=== PATIENT | male | born 1960 | race Caucasian/White ===

== ENCOUNTER 2020-11-20 10:07 | Emergency (ER) | payer MEDICARE, OTHER ==
[~2020-11-20] VITALS: Ht 172.7 cm; Wt 101.6 kg
--- NOTE | 2020-11-20 10:12 | NUR ---
TO ER BED 1, C/O RIGHT YAZIDISM PAIN FOR 2 DAYS, ATTACHED TO MONITOR, AWAITING MD CARVAJAL Addendum: 11/20/20 at 1048 by SIGIFREDO ALSO WITH CHEST PAIN FOR 2 DAYS OR LONGER
--- NOTE | 2020-11-20 10:16 | NUR ---
Called [facility], the PT can go back to the facility after lunch per house sup.
--- NOTE | 2020-11-20 10:48 | NUR ---
LAB AT BEDSIDE
--- NOTE | 2020-11-20 10:56 | NUR ---
XRAY AT BEDSIDE
[2020-11-20 10:57] LABS: BASOPHILS # (AUTO) 0.1 K/uL (0.0-0.2); BASOPHILS % (AUTO) 0.9 % (0.0-2.0); EOSINOPHILS % (AUTO) 1.5 % (0.0-6.0); HEMATOCRIT 41 % (39-51); HEMOGLOBIN 13.8 g/dL (13.5-17.5); LYMPHOCYTES # (AUTO) 1.9 K/uL (0.8-4.8); LYMPHOCYTES % (AUTO) 30.5 % (20.0-44.0); MEAN CORPUSCULAR HGB CONC 34 g/dl (31.0-36.0); MEAN CORPUSCULAR VOLUME 96 fL (80-96); MONOCYTES # (AUTO) 0.6 K/uL (0.1-1.30); MONOCYTES % (AUTO) 9.1 % (2.0-12.0); NEUTROPHILS # (AUTO) 3.7 K/uL (1.8-8.9); PLATELET COUNT (AUTO) 246 K/uL (150-450); RED BLOOD CELL COUNT(AUTO) 4.21 MIL/uL (4.5-6.0); WHITE BLOOD COUNT (AUTO) 6.3 K/uL (4.3-11.0)
[2020-11-20 11:01] LABS: CALCIUM, SERUM 8.2 mg/dL (8.5-10.1); CARBON DIOXIDE 24 mmol/L (21-32); CHLORIDE 103 mmol/L (98-107); CREATININE 0.7 mg/dL (0.6-1.3); GLUCOSE 82 mg/dL (74-106); SODIUM SERUM 135 mmol/L (136-145); UREA NITROGEN, BLOOD 11 mg/dL (7-18)
[2020-11-20 11:04] LABS: POTASSIUM 6.2 mmol/L (3.5-5.1)
--- NOTE | 2020-11-20 11:26 | NUR ---
LAB AT BESIDE
[2020-11-20 11:41] LABS: CALCIUM, SERUM 8.3 mg/dL (8.5-10.1); CREATININE 0.9 mg/dL (0.6-1.3)
[2020-11-20 12:12] VITALS: BP 109/66
[2020-11-20] MEDS ORDERED: ACET-2605 PO (12:12)
--- NOTE | 2020-11-20 12:19 | NUR ---
IV removed. Catheter intact and site benign. Pressure and 4x4 applied to site. No bleeding noted.Patient discharged to home in stable condition. Written and verbal after care instructions given. Patient verbalizes understanding of instruction.
== END 2020-11-20 12:30 | disposition home or self-care (01) ==
LOC: ER 10:26
DX: R07.89 Other chest pain (principal); J45.909 Unspecified asthma, uncomplicated; F32.9 Major depressive disorder, single episode, unspecified; F41.9 Anxiety disorder, unspecified; Z88.5 Allergy status to narcotic agent; Z88.2 Allergy status to sulfonamides
CPT/HCPCS: 36415; 71045-TC; 80048-TC; 83880; 84484-TC; 85025-TC

== ENCOUNTER 2021-07-02 09:53 | Emergency (ER) | payer MEDICARE, OTHER ==
[~2021-07-02] VITALS: Ht 182.9 cm; Wt 103.4 kg
[~2021-07-02 09:53] MED LIST: ACET-2605 PO
--- NOTE | 2021-07-02 10:00 | NUR ---
BIBRA FOR WITNESSED SEIZURE EVENT WHILE AT THE FACILITY. THE PATIENT IS ALERT AND ORIENTED X2. DENIES PAIN. IN ROOM AIR AND DENIES SOB. RESPIRATION REGULAR AND UNLABORED. ATTACHED TO THE MONITOR. SIDE RAILS PADDED. SEIZURE PRECAUTIONS TAKEN. WILL CONTINUE TO MONITOR THE PATIENT.
[2021-07-02] MEDS ORDERED: OXYB-58 PO (10:14)
[2021-07-02] MEDS ORDERED: ZOLP5TAB8 PO (10:14)
[2021-07-02] MEDS ORDERED: DONE5TAB34 PO (10:14)
[2021-07-02] MEDS ORDERED: MEMA10TA PO (10:14)
[2021-07-02] MEDS ORDERED: FOLI0.4T6 PO (10:14)
[2021-07-02] MEDS ORDERED: TRAZ-257 PO (10:14)
[2021-07-02] MEDS ORDERED: KETO10TA2 PO (10:14)
[2021-07-02] MEDS ORDERED: DOCU250C14 PO (10:14)
[2021-07-02] MEDS ORDERED: LEVE500T9 PO (10:14)
[2021-07-02] MEDS ORDERED: VITA1TAB56 PO (10:14)
[2021-07-02] MEDS ORDERED: SUMA50TA PO (10:14)
[2021-07-02] MEDS ORDERED: LEVO25TA7 PO (10:14)
[2021-07-02] MEDS ORDERED: IBUP-1955 PO (10:14)
[2021-07-02] MEDS ORDERED: MIRT-90 PO (10:14)
[2021-07-02] MEDS ORDERED: ACET-2605 PO (10:14)
[2021-07-02] MEDS ORDERED: NITR0.4T48 SL (10:14)
[2021-07-02] MEDS ORDERED: ESCI10TA PO (10:14)
[2021-07-02] MEDS ORDERED: LAMO200T10 PO (10:14)
[2021-07-02] MEDS ORDERED: PROP10TA10 PO (10:14)
[2021-07-02] MEDS ORDERED: METH750T3 PO (10:14)
[2021-07-02] MEDS ORDERED: CYAN-51 PO (10:17)
[2021-07-02] MEDS ORDERED: LISI10TA29 PO (10:17)
[2021-07-02] MEDS ORDERED: ARIP5TAB10 PO (10:17)
[2021-07-02] MEDS ORDERED: PANT40TA2 PO (10:17)
[2021-07-02] MEDS ORDERED: OMEG1CAP40 PO (10:17)
[2021-07-02] MEDS ORDERED: CHOL100043 PO (10:17)
[2021-07-02] MEDS ORDERED: LACO200T2 PO (10:17)
--- NOTE | 2021-07-02 10:27 | NUR ---
PT UNALBLE TO PROVIDE URINE AT THIS TIME, URINAL PROVIDED AT BEDSIDE.
[2021-07-02 10:43] LABS: BASOPHILS # (AUTO) 0.1 K/uL (0.0-0.2); BASOPHILS % (AUTO) 0.8 % (0.0-2.0); EOSINOPHILS % (AUTO) 1.4 % (0.0-6.0); HEMATOCRIT 41 % (39-51); HEMOGLOBIN 13.8 g/dL (13.5-17.5); LYMPHOCYTES # (AUTO) 1.4 K/uL (0.8-4.8); LYMPHOCYTES % (AUTO) 17.8 % (20.0-44.0); MEAN CORPUSCULAR HGB CONC 34 g/dl (31.0-36.0); MEAN CORPUSCULAR VOLUME 96 fL (80-96); MONOCYTES # (AUTO) 0.4 K/uL (0.1-1.30); MONOCYTES % (AUTO) 5.5 % (2.0-12.0); NEUTROPHILS # (AUTO) 5.6 K/uL (1.8-8.9); NEUTROPHILS % (AUTO) 74.5 % (43.0-81.0); PLATELET COUNT (AUTO) 245 K/uL (150-450); RED BLOOD CELL COUNT(AUTO) 4.27 MIL/uL (4.5-6.0); WHITE BLOOD COUNT (AUTO) 7.6 K/uL (4.3-11.0)
[2021-07-02 11:02] LABS: CALCIUM, SERUM 8.5 mg/dL (8.5-10.1); CARBON DIOXIDE 31 mmol/L (21-32); CHLORIDE 102 mmol/L (98-107); GLUCOSE 123 mg/dL (74-106); POTASSIUM 3.8 mmol/L (3.5-5.1); SODIUM SERUM 138 mmol/L (136-145); UREA NITROGEN, BLOOD 10 mg/dL (7-18)
[2021-07-02 11:08] LABS: ALANINE AMINOTRANSFERASE 35 U/L (12-78); ALBUMIN 3.5 g/dL (3.4-5.0); ALCOHOL, BLOOD < 3 mg/dL (0-0); ALKALINE PHOSPHATASE 148 U/L (46-116); ASPARTATE AMINOTRANSFERASE 18 U/L (15-37); BILIRUBIN,DIRECT 0.1 mg/dL (0.0-0.2); BILIRUBIN,TOTAL 0.2 mg/dL (0.2-1.0); TOTAL PROTEIN, SERUM 7.7 g/dL (6.4-8.2)
--- NOTE | 2021-07-02 12:13 | NUR ---
urine specimen sent to lab
--- NOTE | 2021-07-02 12:40 | NUR ---
[facility] CALLED FOR TRANSPORT WITH ETA OF 60 MINS.
--- NOTE | 2021-07-02 14:05 | NUR ---
[facility] ARRIVED TO TRANSPORT PT, REPORT WAS GIVEN, PT WAS PROVIDED WITH DISCHARGE PAPERWORK AND VERBALIZED UNDERSTANDING. ACCESS TO PORTACATH REMOVED, PRESSURE APPLIED WITH 2X2 GUAZE. PT BEING DISCHARGED IN STABLE CONDITION.
[2021-07-02 14:07] VITALS: BP 162/88
== END 2021-07-02 14:08 | disposition home or self-care (01) ==
LOC: ER 10:01
DX: G40.909 Epilepsy, unspecified, not intractable, without status epilepticus (principal); J45.909 Unspecified asthma, uncomplicated; F32.A Depression, unspecified; F41.9 Anxiety disorder, unspecified; Z88.5 Allergy status to narcotic agent; Z88.2 Allergy status to sulfonamides; Z79.1 Long term (current) use of non-steroidal anti-inflammatories (NSAID); Z79.899 Other long term (current) drug therapy
CPT/HCPCS: 36415; 71045-TC; 80048-TC; 80076-TC; 85025-TC; 85730-TC; G0480

== ENCOUNTER 2021-10-03 10:07 | Emergency (ER) | payer MEDICARE, OTHER ==
[~2021-10-03] VITALS: Ht 172.7 cm; Wt 95.3 kg
[~2021-10-03 10:07] MED LIST changes: +ARIP5TAB10 PO; +CHOL100043 PO; +CYAN-51 PO; +DOCU250C14 PO; +DONE5TAB34 PO; +ESCI10TA PO; +FOLI0.4T6 PO; +IBUP-1955 PO; +KETO10TA2 PO; +LACO200T2 PO; +LAMO200T10 PO; +LEVE500T9 PO; +LEVO25TA7 PO; +LISI10TA29 PO; +MEMA10TA PO; +METH750T3 PO; +MIRT-90 PO; +NITR0.4T48 SL; +OMEG1CAP40 PO; +OXYB-58 PO; +PANT40TA2 PO; +PROP10TA10 PO; +SUMA50TA PO; +TRAZ-257 PO; +VITA1TAB56 PO; +ZOLP5TAB8 PO
--- NOTE | 2021-10-03 10:40 | NUR ---
RECEVED PT 61 YRS MALE CAME BY [facility] C/O CHEST PAIN WITH SOB RESPIRATION SPONT AND EASY
--- NOTE | 2021-10-03 10:50 | NUR ---
BLOOD DROW AND SNT TO LAB
[2021-10-03 11:07] LABS: BASOPHILS # (AUTO) 0.1 K/uL (0.0-0.2); BASOPHILS % (AUTO) 0.8 % (0.0-2.0); EOSINOPHILS % (AUTO) 2.7 % (0.0-6.0); HEMATOCRIT 42 % (39-51); HEMOGLOBIN 13.9 g/dL (13.5-17.5); LYMPHOCYTES # (AUTO) 1.9 K/uL (0.8-4.8); LYMPHOCYTES % (AUTO) 25.4 % (20.0-44.0); MEAN CORPUSCULAR HGB CONC 33 g/dl (31.0-36.0); MEAN CORPUSCULAR VOLUME 97 fL (80-96); MONOCYTES # (AUTO) 0.5 K/uL (0.1-1.30); MONOCYTES % (AUTO) 7.5 % (2.0-12.0); NEUTROPHILS # (AUTO) 4.6 K/uL (1.8-8.9); NEUTROPHILS % (AUTO) 63.6 % (43.0-81.0); PLATELET COUNT (AUTO) 241 K/uL (150-450); RED BLOOD CELL COUNT(AUTO) 4.31 MIL/uL (4.5-6.0); WHITE BLOOD COUNT (AUTO) 7.3 K/uL (4.3-11.0)
--- NOTE | 2021-10-03 11:10 | NUR ---
TO CT SCAN OF HEAD
[2021-10-03 11:34] LABS: ALANINE AMINOTRANSFERASE 28 U/L (12-78); ALBUMIN 3.5 g/dL (3.4-5.0); ALKALINE PHOSPHATASE 125 U/L (46-116); ASPARTATE AMINOTRANSFERASE 27 U/L (15-37); BILIRUBIN,TOTAL 0.4 mg/dL (0.2-1.0); CALCIUM, SERUM 8.4 mg/dL (8.5-10.1); CARBON DIOXIDE 30 mmol/L (21-32); CHLORIDE 102 mmol/L (98-107); CREATININE 0.9 mg/dL (0.6-1.3); GLUCOSE 88 mg/dL (74-106); POTASSIUM 5.2 mmol/L (3.5-5.1); SODIUM SERUM 135 mmol/L (136-145); TOTAL PROTEIN, SERUM 7.9 g/dL (6.4-8.2); UREA NITROGEN, BLOOD 13 mg/dL (7-18)
--- NOTE | 2021-10-03 11:40 | NUR ---
kisha for lab result
--- NOTE | 2021-10-03 12:17 | NUR ---
awake and alert AMBLATE TO br no diffeculy d/cinstraction given to pt fully and verblized understood d/c home with fallow up care
--- NOTE | 2021-10-03 13:02 | NUR ---
CALLED [facility] AND SET UP BLS TRANSPORT ETA 1400
--- NOTE | 2021-10-03 13:14 | NUR ---
WATING FOR [facility] TO transfer back to snf
--- NOTE | 2021-10-03 14:04 | NUR ---
LUNCH OBTENED EAT WILL NO N/V NO CHEST PAIN NO DIZZNESS WATING FOR AMBLANCE
--- NOTE | 2021-10-03 14:50 | NUR ---
[facility] HERE FOR TRANSFER PT TO [facility]
[2021-10-03 15:06] VITALS: BP 144/83
== END 2021-10-03 15:06 | disposition home or self-care (01) ==
LOC: ER 10:11
DX: R07.89 Other chest pain (principal); R42 Dizziness and giddiness; J45.909 Unspecified asthma, uncomplicated; F32.A Depression, unspecified; F41.9 Anxiety disorder, unspecified; Z86.69 Personal history of other diseases of the nervous system and sense organs; Z88.8 Allergy status to other drugs, medicaments and biological substances; Z79.899 Other long term (current) drug therapy
CPT/HCPCS: 36415; 70450-TC; 71045-TC; 80048-TC; 80076-TC; 84484-TC; 85025-TC; 85730-TC

== ENCOUNTER 2022-07-30 11:37 | Emergency (ER) | payer MEDICARE, OTHER ==
[~2022-07-30] VITALS: Ht 172.7 cm; Wt 102.5 kg
--- NOTE | 2022-07-30 11:58 | NUR ---
Patient AOx3-4, able to express his concernt. Patient aware of current situation but states he does know what was going on before coming to the hospital. Patient able to provide some history, falling asleep during assessment. Will continue to monitor throughout shift, all safety precautions taken.
--- NOTE | 2022-07-30 12:25 | NUR ---
Labs collected and sent to lab
[2022-07-30 13:04] LABS: BASOPHILS # (AUTO) 0.1 K/uL (0.0-0.2); BASOPHILS % (AUTO) 1.1 % (0.0-2.0); EOSINOPHILS % (AUTO) 2.4 % (0.0-6.0); HEMATOCRIT 43 % (39-51); HEMOGLOBIN 14.4 g/dL (13.5-17.5); LYMPHOCYTES # (AUTO) 1.9 K/uL (0.8-4.8); LYMPHOCYTES % (AUTO) 24.6 % (20.0-44.0); MEAN CORPUSCULAR HGB CONC 34 g/dl (31.0-36.0); MEAN CORPUSCULAR VOLUME 95 fL (80-96); MONOCYTES # (AUTO) 0.4 K/uL (0.1-1.30); MONOCYTES % (AUTO) 5.8 % (2.0-12.0); NEUTROPHILS # (AUTO) 5.2 K/uL (1.8-8.9); NEUTROPHILS % (AUTO) 66.1 % (43.0-81.0); PLATELET COUNT (AUTO) 274 K/uL (150-450); RED BLOOD CELL COUNT(AUTO) 4.51 MIL/uL (4.5-6.0); WHITE BLOOD COUNT (AUTO) 7.8 K/uL (4.3-11.0)
[2022-07-30 13:13] LABS: CALCIUM, SERUM 8.6 mg/dL (8.5-10.1); POTASSIUM 4.8 mmol/L (3.5-5.1)
[2022-07-30 13:17] LABS: ALBUMIN 3.7 g/dL (3.4-5.0); BILIRUBIN,TOTAL 0.5 mg/dL (0.2-1.0); TOTAL PROTEIN, SERUM 8.6 g/dL (6.4-8.2)
[2022-07-30] MEDS ORDERED: ACETAMINOPHEN ES 500 MG TABLET PO ONE (14:00)
[2022-07-30] MEDS ORDERED: ACETAMINOPHEN ES 500 MG TABLET ONE (14:03)
--- NOTE | 2022-07-30 14:21 | NUR ---
CALLED [facility] SPOKE TO JEANNIE REGARDING RETURN OF PT, WILL DISCUSS WITH BUFFER NICKEL AND CALL BACK
--- NOTE | 2022-07-30 14:36 | NUR ---
SPOKE WITH [facility] [employer] [facility] WHO INFORMED PT IS A VOLUNTARY ADMIT AND WILL BE ACCEPTED.
--- NOTE | 2022-07-30 15:03 | NUR ---
NOTIFIED SPEEDY Kelsey/ [employer] [employer]U[facility] FOR ASSISTANCE ON DISCHARGE PLANNING.
--- NOTE | 2022-07-30 15:03 | NUR ---
UNABLE TO REACH [facility]&C VIA PHONE ON FILE
--- NOTE | 2022-07-30 15:04 | NUR ---
SS NOTE: OLIVIER was notified of this 62 year old patient that came from [facility] IOP program after seizure like acitivity per ERM. Pt. is now medically cleared and wants to go straight to the facility he resides [facility] [[address] [place] [address]] instead of going back to [facility]. OLIVIER called tel: [phone] and spoke to Gabi from facility who said pt. can return to [facility] [[address] [place] [address]]. OLIVIER spoke to ED Staff and notified them to arrange tranport to :[facility] [[address] [place] [address]].
--- NOTE | 2022-07-30 15:42 | NUR ---
TRANSPORT ARRANGED WITH [facility], ETA 1074
--- NOTE | 2022-07-30 16:35 | NUR ---
Discussed plan of care with patient, verbalized agreement. Forms signed and records given to pt.
--- NOTE | 2022-07-30 16:43 | NUR ---
Transport at bedside, setting up patient for transport. All safety precautions taken.
[2022-07-30 16:44] VITALS: BP 128/88
== END 2022-07-30 16:44 | disposition home or self-care (01) ==
LOC: ER 12:04
DX: R56.9 Unspecified convulsions (principal); J45.909 Unspecified asthma, uncomplicated; F32.A Depression, unspecified; F41.9 Anxiety disorder, unspecified; F20.9 Schizophrenia, unspecified; Z79.899 Other long term (current) drug therapy; Z88.2 Allergy status to sulfonamides; Z88.5 Allergy status to narcotic agent
CPT/HCPCS: 36415; 80048-TC; 80076-TC; 85025-TC

== ENCOUNTER 2023-08-06 13:05 | Emergency (ER) | payer MEDICARE, OTHER ==
[~2023-08-06] VITALS: Ht 170.2 cm; Wt 100.7 kg
[2023-08-06 14:34] LABS: BASOPHILS # (AUTO) 0.1 K/uL (0.0-0.2); BASOPHILS % (AUTO) 0.9 % (0.0-2.0); EOSINOPHILS # (AUTO) 0.1 K/uL (0.0-0.7); EOSINOPHILS % (AUTO) 2.1 % (0.0-6.0); HEMATOCRIT 41 % (39-51); HEMOGLOBIN 13.9 g/dL (13.5-17.5); LYMPHOCYTES # (AUTO) 1.5 K/uL (0.8-4.8); LYMPHOCYTES % (AUTO) 21.3 % (20.0-44.0); MEAN CORPUSCULAR HEMOGLOBIN 32 PG (26.0-33.0); MEAN CORPUSCULAR HGB CONC 34 g/dl (31.0-36.0); MEAN CORPUSCULAR VOLUME 94 fL (80-96); MONOCYTES # (AUTO) 0.4 K/uL (0.1-1.30); MONOCYTES % (AUTO) 5.3 % (2.0-12.0); NEUTROPHILS % (AUTO) 70.4 % (43.0-81.0); PLATELET COUNT (AUTO) 276 K/uL (150-450); RED BLOOD CELL COUNT(AUTO) 4.36 MIL/uL (4.5-6.0); RED CELL DISTRIBUTION WIDTH 12.8 % (11.5-15.0)
[2023-08-06] MEDS: IV NS 0.9% 1,000 ML BAG IV ONE (14:34)
[2023-08-06 14:47] LABS: CALCIUM, SERUM 8.5 mg/dL (8.5-10.1); CREATININE 1.1 mg/dL (0.6-1.3); POTASSIUM 3.6 mmol/L (3.5-5.1)
[2023-08-06 14:53] LABS: ALBUMIN 3.4 g/dL (3.4-5.0); BILIRUBIN,DIRECT 0.1 mg/dL (0.0-0.2); BILIRUBIN,TOTAL 0.3 mg/dL (0.2-1.0); TOTAL PROTEIN, SERUM 7.6 g/dL (6.4-8.2)
[2023-08-06] MEDS ORDERED: LORAZEPAM INJ 2 MG/ML VIAL ONE (15:05)
[2023-08-06] MEDS: LORAZEPAM INJ 2 MG/ML VIAL IVP ONE (15:09)
[2023-08-06] MEDS: LEVETIRACETAM (500MG) 1,000 MG in IV NS 0.9% 90 ML IV SCH (15:37)
[2023-08-06 15:52] LABS: AMPHETAMINE, URINE NEGATIVE (NEGATIVE); BARBITURATE, URINE NEGATIVE (NEGATIVE); BENZODIAZEPINE, URINE NEGATIVE (NEGATIVE); CANNABINOID, URINE NEGATIVE (NEGATIVE); COCCAINE, URINE NEGATIVE (NEGATIVE); OPIATE, URINE NEGATIVE (NEGATIVE); PHENCYCLIDINE SCREEN,URINE NEGATIVE (NEGATIVE)
[2023-08-06 17:20] VITALS: BP 161/90; TEMP 98.6; O2SAT 96
== END 2023-08-06 17:21 ==
LOC: ER 13:07
DX: S02.2XXA Fracture of nasal bones, initial encounter for closed fracture (principal); R56.9 Unspecified convulsions; I10 Essential (primary) hypertension; J45.909 Unspecified asthma, uncomplicated; E03.9 Hypothyroidism, unspecified; K21.9 Gastro-esophageal reflux disease without esophagitis; F41.9 Anxiety disorder, unspecified; F03.90 Unspecified dementia, unspecified severity, without behavioral disturbance, psychotic disturbance, mood disturbance, and anxiety; F32.A Depression, unspecified; Z88.5 Allergy status to narcotic agent; Z88.2 Allergy status to sulfonamides; Z79.899 Other long term (current) drug therapy; W18.30XA Fall on same level, unspecified, initial encounter; Y93.89 Activity, other specified; Y92.89 Other specified places as the place of occurrence of the external cause; Y99.8 Other external cause status
CPT/HCPCS: 99285; 96365; 96375; 72125; 70450; 70486; 85025; 80048; 80185; 80076; 36415; 80320; 80307; J2060; J7030 ×2; J1953; G0480

== ENCOUNTER 2023-11-25 10:47 | Emergency (ER) | payer MEDICARE, OTHER ==
[~2023-11-25] VITALS: Ht 167.6 cm; Wt 90.7 kg
[2023-11-25 13:00] LABS: BASOPHILS % (AUTO) 0.8 % (0.0-2.0); EOSINOPHILS # (AUTO) 0.1 K/uL (0.0-0.7); EOSINOPHILS % (AUTO) 1.9 % (0.0-6.0); HEMATOCRIT 41 % (39-51); HEMOGLOBIN 13.8 g/dL (13.5-17.5); LYMPHOCYTES # (AUTO) 1.6 K/uL (0.8-4.8); LYMPHOCYTES % (AUTO) 25.2 % (20.0-44.0); MEAN CORPUSCULAR HEMOGLOBIN 32 PG (26.0-33.0); MEAN CORPUSCULAR HGB CONC 34 g/dl (31.0-36.0); MEAN CORPUSCULAR VOLUME 94 fL (80-96); MONOCYTES # (AUTO) 0.4 K/uL (0.1-1.30); MONOCYTES % (AUTO) 6.9 % (2.0-12.0); NEUTROPHILS % (AUTO) 65.2 % (43.0-81.0); PLATELET COUNT (AUTO) 251 K/uL (150-450); RED BLOOD CELL COUNT(AUTO) 4.35 MIL/uL (4.5-6.0); RED CELL DISTRIBUTION WIDTH 12.9 % (11.5-15.0); WHITE BLOOD COUNT (AUTO) 6.2 K/uL (4.3-11.0)
[2023-11-25] MEDS: LEVETIRACETAM (500MG) 500 MG in IV NS 0.9% 100 ML IV SCH (13:10)
[2023-11-25 13:22] LABS: ALBUMIN 3.2 g/dL (3.4-5.0); BILIRUBIN,DIRECT 0.1 mg/dL (0.0-0.2); BILIRUBIN,TOTAL 0.4 mg/dL (0.2-1.0); CALCIUM, SERUM 8.8 mg/dL (8.5-10.1); CREATININE 0.9 mg/dL (0.6-1.3)
[2023-11-25 16:38] VITALS: BP 151/81; TEMP 98.1; O2SAT 99
== END 2023-11-25 16:39 | disposition home or self-care (01) ==
LOC: ER 11:16
DX: G40.909 Epilepsy, unspecified, not intractable, without status epilepticus (principal); R94.31 Abnormal electrocardiogram [ECG] [EKG]; J45.909 Unspecified asthma, uncomplicated; F29 Unspecified psychosis not due to a substance or known physiological condition; F32.A Depression, unspecified; F41.9 Anxiety disorder, unspecified; Z88.8 Allergy status to other drugs, medicaments and biological substances; Z88.2 Allergy status to sulfonamides
CPT/HCPCS: 99285; 96365; 70450; 71045; 93005; 85025; 80048; 80076; 36415; J7030; J1953